=== PATIENT | female | born 1975 | race Caucasian/White ===

== ENCOUNTER 2016-05-19 23:32 | Emergency (ER) | payer MEDICAID ==
[~2016-05-19] VITALS: Ht 149.9 cm; Wt 63.5 kg
[2016-05-19 23:39] VITALS: Ht 149.9 cm; Wt 63.5 kg
[2016-05-20] MEDS ORDERED: CEPH-443 PO (03:22)
[2016-05-20] MEDS ORDERED: BACTDS PO (03:22)
[2016-05-20] MEDS ORDERED: IBUP-1542 PO (03:25)
[2016-05-20] MEDS ORDERED: BEN25 PO (03:25)
--- NOTE | 2016-05-20 04:09 | ERD ---
ER Documentation Chief Complaint Date/Time DATE: 05/20/16 TIME: 04:03 Chief Complaint RASH TO RIGHT UPPER QUADRANT ABD X 2 WEEKS HPI Patient is a 40-year-old female who presents to the emergency department with a rash to her right upper quadrant abdomen 2 weeks. Patient states that initially it started as a small pimple, however the lesion has been growing in size. She does report itching the affected area. She reports "scratch downey." Patient does report increasing redness and swelling to the affected area. Patient states that she started to have some clear yellow discharge from the affected site earlier today. Patient states that the lesion is tender to palpation. Patient denies any fevers, chills, nausea, vomiting, chest pain, shortness of breath, abdominal pain, changes in bowels habits or loss of consciousness. Patient denies any throat swelling, tongue swelling, lip swelling, chest tightness, faculty breathing. Patient denies any new creams, lotions, products, pets, foods or medications. ROS All systems reviewed and are negative except as per history of present illness. Medications Home Meds Active Scripts Ibuprofen* (Motrin*) 600 Mg Tab, 600 MG PO Q6, #30 TAB Prov:MARCOS ODOM PA-C 05/20/16 Diphenhydramine Hcl* (Benadryl*) 25 Mg Cap, 25 MG PO Q6, #30 CAP Prov:MARCSO ODOM PA-C 05/20/16 Cephalexin* (Keflex*) 500 Mg Capsule, 500 MG PO QID for 7 Days, CAP Prov:MARCOS DOOM PA-C 05/20/16 Sulfamethoxazole-Trimethoprim* (Bactrim* DS) 800-160 Mg Tab, 1 TAB PO BID for 7 Days, TAB Prov:MARCOS ODOM PA-C 05/20/16 Allergies Allergies: Coded Allergies: No Known Allergies (Verified Allergy, Mild, 05/29/12) PMhx/Soc History of Surgery: Yes () Anesthesia Reaction: No Hx Neurological Disorder: No Hx Respiratory Disorders: No Hx Cardiac Disorders: No Hx Psychiatric Problems: No Hx Miscellaneous Medical Probl: No Hx Alcohol Use: No Hx Substance Use: No Hx Tobacco Use: No Smoking Status: Never smoker FmHx Family History: No diabetes Physical Exam Vitals Vital Signs Date Time Temp Pulse Resp B/P Pulse Ox O2 Delivery O2 Flow Rate FiO2 05/19/16 23:39 97.3 71 20 135/81 99 Physical Exam GENERAL: Well-developed, well-nourished female. Appears in no acute distress. Speaking in full sentences HEAD: Normocephalic, atraumatic. No deformities or ecchymosis. EYE: Pupils equal, round, and reactive to light. EOMs intact. No conjunctival erythema. No eye discharge. ENT: External ear without any masses or tenderness. Auditory canals clear bilaterally. TM visualized bilaterally, non-erythematous, non-bulging. Nasal mucosa pink with no discharge. Oropharynx is pink without any tonsillar erythema or exudates. No uvula deviation. No kissing tonsils. No lip swelling. No tongue swelling. No throat swelling. NECK: Supple. No meningismus. Normal ROM of the neck. LUNG: Clear to auscultation bilaterally. No rhonchi, wheezing, rales or coarse breath sounds. HEART: Regular rate and rhythm. No murmurs, rubs or gallops. ABDOMEN: Soft, nontender, and nondistended. Positive bowel sounds in all four quadrants. No rebound tenderness, no guarding. (-) McBurney's point tenderness. No CVA tenderness. EXTREMITIES: Equal pulses bilaterally. No peripheral clubbing, cyanosis or edema. No unilateral leg swelling. NEUROLOGIC: Alert and oriented to person, place and time. Moving all four extremities. 5/5 strength in all extremities. Normal speech. Steady gait. SKIN: Normal color. Warm and dry. 2 cm erythematous maculopapular erythematous lesion noted to the patient's right upper abdomen with excoriation downey. + Active drainage from affected site. Minimal swelling. Area is indurated. No fluctuance. Minimal warmth. No satellite lesions. Procedures/MDM MEDICAL DECISION MAKING: This is a 40-year-old female who presents with circular erythematous lesion to her right upper quadrant abdomen 2 weeks. Vital signs were reviewed. Patient was afebrile. Given patient's history and physical exam finding, the patient's presentation is most consistent with boil versus abscess. I have a much lower clinical concern for necrotizing fasciitis, sepsis, gangrene, Jude-Dex syndrome, toxic epidural necrolysis, herpes zoster, viral exanthem, anaphylaxis , allergic reaction, allergic contact dermatitis, irritant contact dermatitis, fungal infection, insect bite, impetigo, dermatitis. There was no indication for incision and drainage at this time given that there was no fluctuance and the lesion was already actively draining. PRESCRIPTIONS: Bactrim, Keflex, ibuprofen DISCHARGE: At this time, patient is stable for discharge and outpatient management. Wound recheck advised in 2 days. I have advised the patient to avoid any new products , creams or possible allergens. I have advised the patient to avoid scratching the lesions. I have instructed the patient to follow-up with his/her primary care physician in 1-2 days. If symptoms persist, patient may need to see a postdoctoral fellow for further examinations and testing. I have instructed the patient to promptly return to the ER at any time for any new or worsening symptoms including increased pain, fever, redness, swelling, warmth, difficulty breathing or vomiting. The patient and/or family expressed understanding of and agreement with this plan. All questions were answered. Home care instructions were provided. Departure Diagnosis: Primary Impression: Abscess Condition: Stable Patient Instructions: Abscess, Antiobiotic Treatment Only Referrals: [facility] YOU HAVE RECEIVED A MEDICAL SCREENING EXAM AND THE RESULTS INDICATE THAT YOU DO NOT HAVE A CONDITION THAT REQUIRES URGENT TREATMENT IN THE EMERGENCY DEPARTMENT. FURTHER EVALUATION AND TREATMENT OF YOUR CONDITION CAN WAIT UNTIL YOU ARE SEEN IN YOUR DOCTORS OFFICE WITHIN THE NEXT 1-2 DAYS. IT IS YOUR RESPONSIBILITY TO MAKE AN APPOINTMENT FOR FOLOW-UP CARE. IF YOU HAVE A PRIMARY DOCTOR --you should call your primary doctor and schedule an appointment IF YOU DO NOT HAVE A PRIMARY DOCTOR YOU CAN CALL OUR PHYSICIAN REFERRAL HOTLINE AT IF YOU CAN NOT AFFORD TO SEE A PHYSICIAN YOU CAN CHOSE FROM THE FOLLOWING [facility] [address] [facility] [address] [facility] [facility] [address] [facility] [address] [facility] [address] [facility]. [facility]. [address] [place]. [facility] YOU HAVE RECEIVED A MEDICAL SCREENING EXAM AND THE RESULTS INDICATE THAT YOU DO NOT HAVE A CONDITION THAT REQUIRES URGENT TREATMENT IN THE EMERGENCY DEPARTMENT. FURTHER EVALUATION AND TREATMENT OF YOUR CONDITION CAN WAIT UNTIL YOU ARE SEEN IN YOUR DOCTORS OFFICE WITHIN THE NEXT 1-2 DAYS. IT IS YOUR RESPONSIBILITY TO MAKE AN APPOINTMENT FOR FOLOW-UP CARE. IF YOU HAVE A PRIMARY DOCTOR --you should call your primary doctor and schedule and appointment IF YOU DO NOT HAVE A PRIMARY DOCTOR YOU CAN CALL OUR PHYSICIAN REFERRAL HOTLINE AT . IF YOU CAN NOT AFFORD TO SEE A PHYSICIAN YOU CAN CHOSE FROM THE FOLLOWING [facility] INSTITUTIONS: [facility] [address] [place] [address] [facility] [address] [place] [address] [facility] [address] [place] [address] Additional Instructions: Llame al doctor MAANA y [facility] GABE PARA DENTRO DE 1-2 NOEL.Dgale a la secretaria que nosotros le instruimos hacer esta gabe.Avise o llame si heredia condicin se empeora antes de la gabe. Regresa aqui si peor o no mejor. Return the emergency department 2 days for wound recheck. Return sooner for any new or worsening symptoms including redness, swelling, redness, fever, chills. MARCOS ODOM PA-C May 20, 2016 04:09
== END 2016-05-20 03:32 | disposition home or self-care (01) ==
LOC: FTE 23:32
DX: L02.211 Cutaneous abscess of abdominal wall (principal)
CPT/HCPCS: 99284